=== PATIENT | female | born 1950 | race Caucasian/White ===

== ENCOUNTER 2016-06-02 13:24 | Inpatient (IN) | payer MEDICARE ==
[~2016-06-02] VITALS: Ht 165.1 cm; Wt 76.9 kg
[2016-06-02] VITALS (9 sets, daily range): BP systolic 117–182; BP diastolic 69–98; PULSE 16–80; RESP 14–16; O2SAT 96–100
[~2016-06-02 13:24] MED LIST: ALBU8.5H4 INHALATION; ATOR20TA65 PO; CHOL200025 PO; CLOB15CR3 TOP; CYCL1DRO OP; FEXO-15 PO; OMPR20CCR PO; SERT100T9 PO; TOPI-31 PO; UBID100C16 PO; VIT1TABL83 PO; vitamin b12 SQ
--- NOTE | 2016-06-02 14:21 | DRSVH ---
PROCEDURE: X-RAY CHEST, TWO VIEWS ([id number]) INDICATIONS: chest pain TECHNIQUE: 2 views of the chest were acquired. COMPARISON: [facility], CR, XR CHEST 2VW, 12/18/2015, 8:57. FINDINGS: Surgical changes and devices: Vascular clips are present in the right upper lateral chest area. The a ppearance would suggest mastectomy on the right. Lungs and pleura: No pleural effusions or pneumothorax. Lungs are clear. Mediastinum: Mediastinal contours are normal. Heart size is normal. Bones and chest wall: No suspicious bony abnormalities. Soft tissues appear unremarkable. IMPRESSION: No acute or active or metastatic disease is seen in the two-view chest. Dictated by: Grady Reyes M.D. on 06/02/2016 at 14:20 Approved by: Grady Reyes M.D. on 06/02/2016 at 14:20
[2016-06-02 16:09] LABS: BASOPHILS % (AUTO) 0.3 % (0-3); EOSINOPHILS % (AUTO) 1.8 % (0-5); MONOCYTES % (AUTO) 5.7 % (4-12); Mean Corpuscular Hemoglobin 29.4 pg (27.0-35.0); Mean Corpuscular Volume 89.7 fL (81-100); NEUTROPHILS % (AUTO) 69.3 % (40-74); Platelet Count 204 bil/L (150-400)
[2016-06-02 16:28] LABS: TROPONIN T 0.034 ug/L (0.0-0.011)
[2016-06-02 16:39] LABS: Magnesium 2.3 mg/dL (1.6-2.6)
--- NOTE | 2016-06-02 17:21 | ED.REPORT ---
HPI-Chest Pain 40 and Over Date of Service Jun 02, 2016 ED Provider: Jose Enrique Velazco MD A 66 year old female with a history of N3 M0 stage III left-sided breast cancer , asthma, LBBB, and hyperlipidemia presents to the ED complaining of mid- sternal chest pressure that began approx. 2 days ago. Her pain has been constant since onset and she rates her current pain as a 4/10. Patient initially believed her symptoms were due to asthma exacerbation but her albuterol inhaler provided no relief. Her symptoms are exacerbated by activity/ movement and relieved by rest. She denies diaphoresis, nausea, vomiting, hematemesis, melena, fevers or chills. Patient's last stress test and echocardiogram was in 2014. Cardiac history is notable for hyperlipidemia and family history of cardiac disease including her mother who during triple bypass at 56 and her brother who recently had a bypass and stent placed in his 50's. She denies history of smoking, DM or hypertension. She is currently taking Statin. Patient denies taking any aspirin today. Nursing Notes Stated Complaint: CHEST PAIN Chief Complaint: Chest Pain Nursing Notes Reviewed: Yes Allergies: Coded Allergies: dicyclomine (Verified Allergy, Severe, FLUSHING, 02/21/12) egg (Verified Allergy, Severe, THROAT SWELLING, 02/21/12) erythromycin base (Verified Allergy, Severe, Throat swelling; itching hands, feet, 02/21/12) HAS TAKEN Z-PACK W/O PROBLEMS ibuprofen (Verified Allergy, Severe, Throat swelling; itching hands & feet , 02/21/12) naproxen (Verified Allergy, Severe, THROAT SWELLS, 02/21/12) HAS TAKEN W/O SUFFERING REACTION Uncoded Allergies: Penicillin (Allergy, Severe, ANAPHYLAXIS, 02/21/12) TREE NUTS/SEEDS (Allergy, Severe, THROAT SWELLING, 02/21/12) ANTIMUSCARINICS/ANTISPASMODICS (Class Allergy) (Allergy, Unknown, UNKNOWN, 02/21/12) IV CONTRAST (Allergy, Unknown, flush, hives, 06/02/16) Scheduled ([vitamin b12]) SQ monthly Atorvastatin Calcium (Atorvastatin Calcium) 20 Mg Tablet 20 MG PO DAILY Cholecalciferol (Vitamin D3) (Vitamin D3) 2,000 Unit Tablet 2,000 UNIT PO DAILY Clobetasol Propionate/Emoll (Clobetasol Emollient 0.05% Crm) 15 Gm Cream..g. 1 APPL TOP PRN Cyclosporine (Restasis) 1 Each Droperette 1 EACH OP BID Fexofenadine (Margarita Allergy) 60 Mg Tablet 60 MG PO PRN Omeprazole (Prilosec) 20 Mg Capcr 20 MG PO PRN Sertraline HCl (Sertraline) 100 Mg Tablet 100 MG PO DAILY Topiramate (Topiramate) 100 Mg Tablet 100 MG PO DAILY Ubidecarenone (Coq-10) 100 Mg Capsule 300 MG PO DAILY Vit B Comp/C/FA/Iron/Vit E (Vitamin B Complex Tablet) 1 Each Tablet 1 EACH PO DAILY Scheduled PRN Albuterol HFA (Albuterol HFA) 8.5 Gm Hfa.aer.ad 2 PUFF INHALATION Q4H PRN PRN For Shortness of Breath Miscellaneous Medications Cyclosporine (Restasis) 1 Each Droperette 1 EACH OP Cyclosporine (Restasis Multidose) 0.05 % Drops 5.5 ML OP General Time Seen by MD: 17:19 Chief Complaint Chest pain Hx Obtained From: Patient Arrived By: Walk-in Sudden in Onset?: No Onset Occurred: 2 days ago Symptom Duration: Constant Location: : Chest left: Chest right Quality: Pressure Radiation: : Does not radiate Migration/Movement: Reports: None Severity: Current: Pain level 4 out of 10 Severity: Maximum: Pain level 4 out of 10 Associated with: Denies: Diaphoresis, Nausea, Vomiting Pertinent Negative: Pt denies other symptoms Recent Healthcare: No recent hospitalization, Recent doctor visit Risk Factors )( CAD Risk Stratification Family history HyperlipidemiaNo Hypertension Risk factors reviewed )( TAD Risk Stratification No Hypertension Risk factors reviewed )( PE Risk Stratification Risk factors reviewed Past Medical History Past Medical History Notes: PCP: Dr. Jesse Herring Past Medical History Stage III, pT1c N3 M0, left-sided breast cancer Asthma LBBB Hyperlipidemia Floppy bowel Left-sided tibial tendinopathy Past Surgical History None reported. Family History Mother - during triple bypass at 56 Brother - bypass and stent placed in his 50's Smoking History Never Smoker Social History Other Social History: Good social support, Local resident Ambulatory Status Independent Review of Systems Constitutional: Denies: Chills, Fever Cardiovascular: Reports: Chest pain (pressure ) GI: Denies: Hematemesis, Melena, Nausea, Vomiting Skin: Denies Diaphoresis Neurologic: Denies: Change LOC Complete sys rev & neg: except as marked. Physical Exam Initial Vital Signs Vital Signs (First) Date Time Temp Pulse Resp B/P Pulse Ox O2 Delivery O2 Flow Rate FiO2 06/02/16 13:26 36.4 16 16 166/98 100 Room Air 06/02/16 18:16 2 Initial VS: Reviewed Head / Eyes: Atraumatic, Normocephalic, PERRL Extremities: Vascular intact, Neuro intact, No swelling, No tenderness Skin: Warm, Dry, No cyanosis Neurologic: Alert, Oriented, Nonfocal Psychiatric: Mood/affect normal, Behavior normal, Normal thought content General/Constitutional: Awake, Alert, No acute distress Respiratory / Chest: Atraumatic, Breath sounds NL, Breath sounds = bilat, No respiratory distress Cardiovascular: Heart rate NL, Regular rhythm, Heart sounds NL, No gallop, No murmurs, No rubs Abdomen: Atraumatic, Soft, Non-tender, BS normoactive Interpretation & Diagnostics Lab Results Interpretation Result Diagram: 06/02/16 1538 06/02/16 1538 Test 06/02/16 15:38 06/02/16 18:36 White Blood Count 7.9th/mm3 (3.8-10.1) Red Blood Count 4.97mil/mm3 (3.90-5.20) Hemoglobin 14.6g/dL (12.0-15.6) Hematocrit 44.6% (35.0-46.0) Mean Corpuscular Volume 89.7fL (81-100) Mean Corpuscular Hemoglobin 29.4pg (27.0-35.0) Mean Corpuscular Hemoglobin Concent 32.7% (32.0-37.0) Red Cell Distribution Width 15.1% (12.3-15.4) Platelet Count 204bil/L (150-400) Neutrophils (%) (Auto) 69.3% (40-74) Lymphocytes (%) (Auto) 22.8% (14-46) Monocytes (%) (Auto) 5.7% (4-12) Eosinophils (%) (Auto) 1.8% (0-5) Basophils (%) (Auto) 0.3% (0-3) Activated Partial Thromboplast Time 28.9sec (22.8-33.0) Sodium Level 144mEq/L (134-144) Potassium Level 4.4mEq/L (3.5-5.2) Chloride Level 105mEq/L (97-108) Carbon Dioxide Level 24mmol/L (18-29) Blood Urea Nitrogen 14mg/dL (8-27) Creatinine 0.97mg/dL (0.57-1.00) Estimat Glomerular Filtration Rate 82mL/min (>59) Glucose Level 96mg/dL (60-99) Calcium Level 11.5mg/dL (8.5-10.1) Magnesium Level 2.3mg/dL (1.6-2.6) Total Bilirubin 0.4mg/dL (0.0-1.2) Aspartate Amino Transf (AST/SGOT) 14U/L (0-50) Alanine Aminotransferase (ALT/SGPT) 12U/L (0-32) Alkaline Phosphatase 82U/L (25-165) Troponin T 0.034ug/L (0.0-0.011) Total Protein 7.5g/dL (6.4-8.4) Albumin 4.7g/dL (3.4-5.0) Hold Hutson Top Tube Received (Received) Hold Urine Received (Received) ECG Interpretation ECG Interpretation: Normal Sinus Rhythm LBBB Rate Time: 13:39 Interpreted by: ED physician X-Ray Chest Interpretation Chest Xray Interpretation: IMPRESSION: No acute or active or metastatic disease is seen in the two-view chest. Dictated by: Grady Reyes M.D. on 06/02/2016 at 14:20 Interpretation / Wet Read by: Interpret - Radiologist Re-Eval/Medical Decision Med Decision/Clinical Course 66-year-old female with multiple risk factors most notably family history. She presents with chest pain since last night. She has a pre-existing left bundle-branch block and a positive troponin. Her physical examination is unremarkable. Given aspirin, nitrates, heparin Plavix and metoprolol. We have spoken to the cardiology service and she will be admitted to the hospitalist service. Time of Eval: 17:47 Patient Status: Condition improved Re-Evaluation/Progress Note: Galina is informed of her elevated troponin the plan to use Plavix and Heparin. She reports that she has been able to take neproxin and apsirin in the past. Patient reports that her throat swells. Consultation #1: Referral / Consult Name: Dodie Duenas MD Consulted With: Cardiology Call Returned at: 17:45 Aerospace Project Manager: Will see patient, Agrees with eval, Agrees with plan Note: Agrees to consult Consultation #2: Referral / Consult Name: AsteremanuelmahamedKinzastacie Jacome DO Consulted With: Hospitalist Call Returned at: 19:45 Aerospace Project Manager: Will see patient, Agrees with eval, Agrees with plan, Accepts admit Counseled Regarding: Diagnosis, Lab results, Need for admission Discharge & Departure Primary Impression: Non-ST elevation (NSTEMI) myocardial infarction Disposition: ADMITTED TO HOSPITAL Discharge Condition All VS Reviewed: Yes Condition: Improved Referrals: Nima Molina MD (PCP) Anetteibjosh Attestation Portions of this note were transcribed by Erendira Escobar. I, Dr. Velazco personally performed the history, physical exam and medical decision-making; I reviewed and confirmed the accuracy of the information in the transcribed note. Signed by: Vinay Moran, 06/02/162025. copies to: Nima Molina MD, Donald L MD Jun 02, 2016 17:21 ERENDIRA ESCOBAR Jun 02, 2016 17:31
[2016-06-02] MEDS ORDERED: Heparin 25K Unit/500mL 0.45 NS 25,000 UNIT in IV Premix 1 EACH IV ONE (17:40)
[2016-06-02] MEDS ORDERED: MeTOProlol 1 mg/mL 5 mL Inj IVPUSH SCH (17:40)
[2016-06-02] MEDS ORDERED: Heparin 5,000 Unit/mL Inj IVPUSH ONE (17:40)
[2016-06-02] MEDS ORDERED: CYCL5.5D OP (18:31)
[2016-06-02] MEDS ORDERED: CYCL1DRO OP (18:31)
[2016-06-02] MEDS ORDERED: Polyethylene Glycol (PEG) 17 Gm Powder PO PRN (20:15)
[2016-06-02] MEDS ORDERED: Ondansetron 2 mg/mL 2 mL Inj IVPUSH PRN (20:15)
[2016-06-02] MEDS ORDERED: Senna-Docusate 8.6-50 mg Tablet PO PRN (20:15)
[2016-06-02] MEDS ORDERED: Alum-Mag Hydrox-Simeth 30 mL Suspension PO PRN (20:15)
[2016-06-02] MEDS ORDERED: Heparin 5,000 Unit/mL Inj IVPUSH PRN (20:15)
[2016-06-02] MEDS ORDERED: Atropine 1 mg/10 mL (Code) Syringe IVPUSH PRN (20:15)
[2016-06-02] MEDS ORDERED: Heparin 25K Unit/500mL 0.45 NS 25,000 UNIT in IV Premix 1 EACH IV SCH (20:15)
[2016-06-02] MEDS ORDERED: Albuterol HFA 60 Puff 8 Gm Inhaler INHALATION PRN (20:25)
[2016-06-02] MEDS ORDERED: Albuterol 2.5 mg/3 mL Inhalation Solution NEB PRN (20:40)
--- NOTE | 2016-06-02 20:41 | PCM.HPMED ---
Subjective Date of Service Jun 02, 2016 Primary Provider: Admitting Physician: Kinza Santana DO Primary Care Physician: Nima Molina MD Attending Physician: Kinza Santana DO Admit Status: From the Emergency Department Chief Complaint: Chest Pain History of Present Illness: Laney Estrada is a 66 year old woman with a PMH of Ns M0 Stage III breast cancer, Asthma, LBBB, and hyperlipidemia who presents with a 2 day history of dull sub- sternal chest pain and pressure. She states that the pain was constant 4/10 since onset until administration of SL Nitro which greatly improved her symptoms. She states that her symptoms are aggravated by exertion and relieved by rest. She had initially thought this was an asthma exacerbation but when it did not respond to her Albuterol inhaler she thought it prudent to seek further medical attention. Patient last had stress test and ECHO in 2014 which demonstrated an EF of 60-65% without valvular pathology; the stress test was benign. Breast cancer is followed by Dr. Celsa tao seen in 2015 at which time there was no active disease. Family history is significant for mother who during a triple bypass at age 56 and a brother who recently had a stent placed in his 50s. She denies diaphoresis, nausea, vomiting, hematemesis, melena, fevers or chills. In the ED the patient had + Trop at 0.[address] changes. CXR revealed no acute or metastatic disease. Dr. Duenas from cardiology is aware of the patient, and has agreed to consult Comprehensive ROS negative except as outlined above. Review of Systems: Complete review of system obtained. Positive as per HPI otherwise negative. Allergies Coded Allergies: dicyclomine (Verified Allergy, Severe, FLUSHING, 02/21/12) egg (Verified Allergy, Severe, THROAT SWELLING, 02/21/12) erythromycin base (Verified Allergy, Severe, Throat swelling; itching hands, feet, 02/21/12) HAS TAKEN Z-PACK W/O PROBLEMS ibuprofen (Verified Allergy, Severe, Throat swelling; itching hands & feet , 02/21/12) naproxen (Verified Allergy, Severe, THROAT SWELLS, 02/21/12) HAS TAKEN W/O SUFFERING REACTION Uncoded Allergies: Penicillin (Allergy, Severe, ANAPHYLAXIS, 02/21/12) TREE NUTS/SEEDS (Allergy, Severe, THROAT SWELLING, 02/21/12) ANTIMUSCARINICS/ANTISPASMODICS (Class Allergy) (Allergy, Unknown, UNKNOWN, 02/21/12) IV CONTRAST (Allergy, Unknown, flush, hives, 06/02/16) PMH N3 M0 Stage III left sided breast cancer, asthma, LBBB, hyperlipidemia Surgical History None Family History Mother during triple bypass age 56 Brother with ID and stent in his 50s Social History Hx Alcohol Use: No Hx Substance Use: No Smoking Status: Never Smoker Living Arrangement: with Family Exam Vital Signs Vital Sign - Last Date Time Temp Pulse Resp B/P Pulse Ox O2 Delivery O2 Flow Rate FiO2 06/02/16 20:27 37.2 58 16 154/77 98 Room Air 1 Nasal Cannula Exam GEN: A/O x3 pleasant cooperative woman in NAD Neck: Supple, non tender, no JVD Lymph: No lymphadenopathy, no cervical or supraclavicular tenderness HEENT: PERRL, EOMI, no scleral icterus, no conjunctival pallor CV: RRR, no murmurs rubs or gallops Resp: Lungs CTA BL no wheezing rales or rhonchi Abdomen: Soft, non tender, no organomegaly Extr: No cyanosis clubbing or edema MusculoSkeletal: normal muscle tone, skin without erythema or trauma Neuro: CN 2-12 grossly intact, no focal neurologic deficit. Lab and Diagnostics Labs Item Value Date Time Red Blood Count 4.97 mil/mm3 06/02/16 1538 Mean Corpuscular Volume 89.7 fL 06/02/16 1538 Neutrophils (%) (Auto) 69.3 % 06/02/16 1538 Lymphocytes (%) (Auto) 22.8 % 06/02/16 1538 Calcium Level 11.5 mg/dL H 06/02/16 1538 Magnesium Level 2.3 mg/dL 06/02/16 1538 Total Bilirubin 0.4 mg/dL 06/02/16 1538 Aspartate Amino Transf (AST/SGOT) 14 U/L 06/02/16 1538 Alanine Aminotransferase (ALT/SGPT) 12 U/L 06/02/16 1538 Alkaline Phosphatase 82 U/L 06/02/16 1538 Total Protein 7.5 g/dL 06/02/16 1538 Albumin 4.7 g/dL 06/02/16 1538 Activated Partial Thromboplast Time 28.9 sec 06/02/16 1538 Result Diagram: 06/02/16 1538 06/02/16 1538 X-Rays, CTs and MRIs X-RAY CHEST, TWO VIEWS IMPRESSION: No acute or active or metastatic disease is seen in the two-view chest. Dictated by: Grday Reyes M.D. on 06/02/2016 at 14:20 Approved by: Grady Reyes M.D. on 06/02/2016 at 14:20 12-lead ECG Sinus Rhythm LBBB Assessment & Plan Laney Estrada is a 66 year old female with a 2 day history of substernal chest pain, a strong family history of CAD, and positive Troponin without ECG changes. She will be admitted for NSTEMI management; cardiology is aware and will be consulting on the patient 1. NSTEMI, present on admission, acute. -Tele -Cardiac Heparin Drip -Metoprolol Tartrate 25 mg given in ED, second dose held due to Bradycardia, consider restarting in AM if heart rate increases -Increase home Atorvastatin to 40 mg daily -Nitrate SL PRN, Morphine IV as needed for chest pain -Supplemental O2 as needed -ASA 325 once then 81 mg, Plavix 300 mg once then 75 mg -Trend Trop and CK CKMB -Lipid Panel and A1 pending -ECHO ordered for am -Cardiology is aware of the patient and will be consulting, we appreciated their input 2. Asthma, present on admission, chronic, stable -not with acute exacerbation -Continue Home Albuterol as needed -Supplemental O2 as needed -Monitor for respiratory depression while on Metoprolol 3. Stage III breast cancer in remission, present on admission, chronic, stable -No evidence of recurrent metastatic disease on CXR -Continue to observe 4. Depression with anxiety, present on admission, chronic. Stable -Continue home Sertraline Other chronic conditions managed with home meds Dry Eyes: Patient's own cyclosporine eye drops Chronic Headaches: Continue home topiramate Home Vitamins: Continue Vit B, B12, CoQ10, D3 CODE STATUS: FULL code Disposition: Inpatient with anticipated stay greater than 2 midnights due to severity of condition and complexity of treatment plan; cardiology consult in the AM may downgrade the patient to observation. Pain Evaluation: Adequate Pain Control GI Prophylaxis: H2 vini VTE Prophylaxis: Other (IV Heparin) Resuscitation Status: CPR: Attempt Resuscitation Attending Statement The patient was seen and examined together with house staff on 06/02/2016 and I agree with the history, exam and plan as outlined in the note above. Hudson Cervantes DO Jun 02, 2016 20:41 Kinza Santana DO Jun 02, 2016 23:37
--- NOTE | 2016-06-02 20:50 | NUR ---
Admit Pt arrived on unit at 2039 on [facility]. Pt jamar to ambulate to scale and bed with SBA. steady gait observed. Pt denies pain is A&Ox3 and VSS. IV infusing heparin per protocol. Tele applied. Pt DPOA and declination of blood paperwork copied and placed in chart at this time.
[2016-06-02] MEDS: 0.9% Sodium Chloride 1,000 ML IV SCH (21:06)
[2016-06-02] MEDS: Sodium Chloride LOK Flush 10 mL Syringe IVFLUSH SCH (21:06)
[2016-06-02] MEDS: RESTASIS BOTH_EYES SCH (21:23)
[2016-06-02 22:32] LABS: Creatine Kinase 83 U/L (21-215)
[2016-06-02 22:33] LABS: APPEARANCE,URINE CLEAR (CLEAR,HAZY); COLOR,URINE STRAW (YELLOW)
[2016-06-02 22:34] LABS: OCCULT BLOOD,URINE SMALL (NEGATIVE); PH,URINE 6.5 (5.0-8.0); UROBILINOGEN,URINE NORMAL (NORMAL)
[2016-06-02 22:41] LABS: TROPONIN T 0.046 ug/L (0.0-0.011)
[2016-06-03] VITALS (8 sets, daily range): BP systolic 124–140; BP diastolic 71–75; PULSE 50–70; RESP 16–18; O2SAT 96–97
[2016-06-03 02:36] LABS: EOSINOPHILS % (AUTO) 2.6 % (0-5); MONOCYTES % (AUTO) 6.9 % (4-12); Mean Corpuscular Hemoglobin 29.4 pg (27.0-35.0); Mean Corpuscular Volume 89.6 fL (81-100); NEUTROPHILS % (AUTO) 65.5 % (40-74); Platelet Count 193 bil/L (150-400)
[2016-06-03 02:37] LABS: BASOPHILS % (AUTO) 0.7 % (0-3)
[2016-06-03 03:17] LABS: Magnesium 2.2 mg/dL (1.6-2.6); Phosphorus 4.2 mg/dL (2.5-4.9)
[2016-06-03 04:08] LABS: Creatine Kinase 75 U/L (21-215)
[2016-06-03 04:09] LABS: TROPONIN T 0.039 ug/L (0.0-0.011)
[2016-06-03] MEDS ORDERED: Vitamin B Complex/Vit C Tablet PO SCH (08:30)
[2016-06-03] MEDS: Sodium Chloride LOK Flush 10 mL Syringe IVFLUSH SCH ×3 (08:30→23:02)
--- NOTE | 2016-06-03 10:06 | PCM.CHPCAR ---
Consult Subjective Date of service Jun 03, 2016 Date of admit Jun 02, 2016 at 20:06 Provider Requesting Consult Primary Care Physician Primary Care Physician: Nima Molina MD Chief Complaint Chest pain, NSTEMI History of Present Illness 66 yo Restorationism woman h/o stage III breast cancer with no recurrence as of 2016, chronic LBBB, and HLD admitted with chest pain. At baseline, patient is fairly healthy and can climb 2 flights of stairs without any difficulty and symptoms. 3 days ago, patient started having exertional chest pain radiating to her jaw that persisted even at rest. She took her inhaler and it did not help. Rest improves the pain. The chest pain persisted until she came to our emergency room yesterday and got nitroglycerin that resolved the pain. She had no recurrence of chest pain in the emergency room that also resolved with nitroglycerin. No recurrence of chest pain since arrival to the hospital floor. Associated with the chest pain is shortness of breath. Denies palpitations, heart racing sensations, nausea, vomiting, lightheadedness, or syncope. Review of Systems Review of Systems Per history of present illness and otherwise unremarkable PMH Past Medical History # Stage 3 breast cancer, N3 M0. Diagnosed 2008. On annual surveillance with last echo in 2016 being benign and no recurrence. # Chronic LBBB # HLD Bedside Blood Glucose: 102 Scheduled ([vitamin b12]) SQ monthly (Reported) Atorvastatin Calcium (Atorvastatin Calcium) 20 Mg Tablet 20 MG PO DAILY ( Reported) Cholecalciferol (Vitamin D3) (Vitamin D3) 2,000 Unit Tablet 2,000 UNIT PO DAILY (Reported) Clobetasol Propionate/Emoll (Clobetasol Emollient 0.05% Crm) 15 Gm Cream..g. 1 APPL TOP PRN (Reported) Cyclosporine (Restasis) 1 Each Droperette 1 EACH OP BID (Reported) Fexofenadine (Margarita Allergy) 60 Mg Tablet 60 MG PO PRN (Reported) Omeprazole (Prilosec) 20 Mg Capcr 20 MG PO PRN (Reported) Sertraline HCl (Sertraline) 100 Mg Tablet 100 MG PO DAILY (Reported) Topiramate (Topiramate) 100 Mg Tablet 100 MG PO DAILY (Reported) Ubidecarenone (Coq-10) 100 Mg Capsule 300 MG PO DAILY (Reported) Vit B Comp/C/FA/Iron/Vit E (Vitamin B Complex Tablet) 1 Each Tablet 1 EACH PO DAILY (Reported) Scheduled PRN Albuterol HFA (Albuterol HFA) 8.5 Gm Hfa.aer.ad 2 PUFF INHALATION Q4H PRN PRN For Shortness of Breath (Reported) Miscellaneous Medications Cyclosporine (Restasis) 1 Each Droperette 1 EACH OP (Reported) Cyclosporine (Restasis Multidose) 0.05 % Drops 5.5 ML OP (Reported) Current Inpatient Medications Current Medications Metoprolol Tartrate 5 mg Q5MIN IVPUSH; Start 06/02/16 at 17:40; Stop 06/02/16 at 21:04; Status DC Nitroglycerin 0.4 mg Q5MIN PRN SL Last administered on 06/02/16 20:29; Admin Dose 0.4 MG; Start 06/02/16 at 17:40 Sodium Chloride 10 ml 10 ml PUSHPA IVFLUSH; Start 06/03/16 at 00:30 Sodium Chloride 1,000 ml @ 80 mls/hr [id number] IV Last administered on 06/02/16 21:06; Admin Dose 80 MLS/HR; Start 06/02/16 at 20:15 Aspirin 81 mg DAILY PO; Start 06/03/16 at 08:30 Clopidogrel Bisulfate 75 mg DAILY PO; Start 06/03/16 at 08:30 Metoprolol Tartrate 25 mg Q12 PO; Start 06/02/16 at 20:30; Stop 06/02/16 at 21:04 ; Status DC Al Hydrox/Mg Hydrox/Simethicone 30 ml Q6 PRN PO; Start 06/02/16 at 20:15 Ondansetron HCl 4-8 mg prn nausea Q4 PRN IVPUSH; Start 06/02/16 at 20:15 Senna 1 tablet BID PRN PO; Start 06/02/16 at 20:15 Polyethylene Glycol 17 gm DAILY PRN PO; Start 06/02/16 at 20:15 Acetaminophen 325 mg Q6 PRN PO; Start 06/02/16 at 20:15 Morphine Sulfate 1-5 mg prn pain not relie... Q5M PRN IVPUSH; Start 06/02/16 at 20:15 Atropine Sulfate Give 0.5 mg for Robert... Q5MIN PRN IVPUSH; Start 06/02/16 at 20: 15 Heparin Sodium (Porcine) Per Protocol for a... PRN PRN IVPUSH; Start 06/02/16 at 20:15 Albuterol 2 puff Q4H PRN INHALATION; Start 06/02/16 at 20:25; Stop 06/02/16 at 20 :37; Status DC Atorvastatin Calcium 40 mg DAILY PO; Start 06/02/16 at 20:25 Topiramate 100 mg DAILY PO; Start 06/03/16 at 08:30 Cholecalciferol 2,000 unit DAILY PO; Start 06/03/16 at 08:30 Patient Own Medication 1 drop BID BOTH_EYES Last administered on 06/02/16t 21:23 ; Admin Dose 1 DROP; Start 06/02/16 at 20:30 Pantoprazole 20 mg DAILY PO; Start 06/02/16 at 20:25 Sertraline HCl 100 mg DAILY PO; Start 06/03/16 at 08:30 Non-Formulary Medication 300 mg DAILY PO; Start 06/03/16 at 08:30; Stop 06/03/16 at 08:30; Status DC Vitamin B Complex/ Vitamin C 1 tablet DAILY PO; Start 06/03/16 at 08:30; Stop 06/03/16 at 09:22; Status DC Albuterol 2.5 mg Q4HWA PRN NEB; Start 06/02/16 at 20:40; Stop 06/02/16 at 21:04; Status DC Prenat Multivit/ Stokes/Iron/Folic Ac 1 tablet DAILY PO; Start 06/04/16 at 08:30 Allergies: Coded Allergies: dicyclomine (Verified Allergy, Severe, FLUSHING, 02/21/12) egg (Verified Allergy, Severe, THROAT SWELLING, 02/21/12) erythromycin base (Verified Allergy, Severe, Throat swelling; itching hands, feet, 02/21/12) HAS TAKEN Z-PACK W/O PROBLEMS ibuprofen (Verified Allergy, Severe, Throat swelling; itching hands & feet , 02/21/12) naproxen (Verified Allergy, Severe, THROAT SWELLS, 02/21/12) HAS TAKEN W/O SUFFERING REACTION Uncoded Allergies: Penicillin (Allergy, Severe, ANAPHYLAXIS, 02/21/12) TREE NUTS/SEEDS (Allergy, Severe, THROAT SWELLING, 02/21/12) ANTIMUSCARINICS/ANTISPASMODICS (Class Allergy) (Allergy, Unknown, UNKNOWN, 02/21/12) IV CONTRAST (Allergy, Unknown, flush, hives, 06/02/16) Family History Family History Mom of CAD at age 56 Social History Hx Alcohol Use: NoHx Substance Use: No Smoking Status: Never Smoker Living Arrangement: with Family Exam Vital Signs Vital Sign - Last Date Time Temp Pulse Resp B/P Pulse Ox O2 Delivery O2 Flow Rate FiO2 06/03/16 09:03 61 06/03/16 07:47 36.4 16 140/75 96 Nasal Cannula 2.00 Intake and Output 06/02/16 06/02/16 06/03/16 Cumulative From/Thru 15:00 23:00 07:00 06/02/16 13:26 - 06/03/16 05:16 Intake Total 1098 ml 1098 ml Output Total 650 ml 600 ml 1250 ml Balance -650 ml 498 ml -152 ml Intake Oral 200 ml 200 ml IV Total 898 ml 898 ml Output Urine Total 650 ml 600 ml 1250 ml # Bowel Movements 0 0 General appearance: No apparent distress, well-nourished, pleasant, cooperative HEET: Normocephalic atraumatic, no scleral icterus, tongue midline, mucous membranes moist Neck: supple, no bruit Cardiovascular: RRR, normal S1 and paradoxical split S2, no murmurs/ rubs/ gallops, PMI nondisplaced, no JVD, no peripheral edema Respiratory: Good aeration, CTAB Abdomen: Soft, nontender, nondistended, + bowel sounds Neuro: Alert, no facial droop, tongue midline, no gross motor deficits Psych: appropriate affect Skin: no rashes on face, neck, and lower extremities Lab and Diagnostics Labs Troponin 0.046 that down trended to 0.039. CK and CK-MB normal. LDL 70. Result Diagram: 06/03/1621906/03/16219 12-lead ECG ECG on admission shows sinus rhythm with left bundle branch block Telemetry in the past 24 hours shows sinus rhythm with occasional PVCs Assessment & Plan Assessment 66 yo Restorationism woman h/o stage III breast cancer with no recurrence as of 2015, chronic LBBB, and HLD admitted with NSTEMI: # NSTEMI: Patient self described story of chest pain suggestive of acute coronary syndrome. ECG shows a chronic unchanged left bundle-branch block. Troponins are elevated, consistent with NSTEMI. I spent significant time regimen the patient and her about patient's condition and answered their questions. I recommended proceeding with coronary angiography with possible PCI. After discussing risks and benefits and alternatives involving medical management alone, patient wishes to proceed with coronary angiography with PCI. She is reminded me that she is Bahai and is not interested in blood transfusions. Recommendations as below: - Continue aspirin 81mg daily - s/p clopidogrel 300mg PO load and now on 75mg daily - Continue atorvastatin 40mg qhs - Continue heparin gtt - Start metoprolol XL 12.5mg qday. Metoprolol tartrate 25mg bid caused bradycardia into the high 40s. - Echo pending - Coronary angiography with possible PCI tomorrow with Dr. Bolden. Informed consent obtained after discussing risks and benefits and alternatives. # LBBB: chronic and unchanged. Echo pending. # HLD: statin as above # Breast cancer, stage 3: no recurrence. On annual surveillance. Prior history of breast cancer is not a contraindication to cath or treatment of NSTEMI in this patient. # Social: - Patient is Bahai and is not interested in blood transfusions. Will respect her wishes and I have asked phlebotomy and the RN to do lab draws using pediatric tubes Pain Evaluation: Adequate Pain Control VTE Prophylaxis: Other (IV Heparin) Resuscitation Status: CPR: Attempt Resuscitation Dodie Duenas MD Jun 03, 2016 10:06
[2016-06-03] MEDS: Pantoprazole 20 mg ER24 Tablet PO SCH ×2 (10:10)
[2016-06-03] MEDS: 0.9% Sodium Chloride 1,000 ML IV SCH (10:11)
[2016-06-03] MEDS: RESTASIS BOTH_EYES SCH ×2 (11:14→20:45)
--- NOTE | 2016-06-03 12:30 | NUR ---
[facility] signed
[2016-06-03] MEDS: MeTOProlol XL 25 mg ER24 Tablet PO SCH (13:33)
--- NOTE | 2016-06-03 15:27 | PCM.PNMED ---
Subjective Date of Service Jun 03, 2016 Subjective Patient resting comfortably in bed, multiple family members at bedside. Denies any current chest pain or shortness of breath, no nausea vomiting or diaphoresis. Exam Vital Signs Vital Sign - Last Date Time Temp Pulse Resp B/P Pulse Ox O2 Delivery O2 Flow Rate FiO2 06/03/16 12:50 36.7 60 18 133/72 97 Nasal Cannula 2.00 Intake and Output 06/02/16 06/02/16 06/03/16 Cumulative From/Thru 15:00 23:00 07:00 06/02/16 13:26 - 06/03/16 05:16 Intake Total 1098 ml 1098 ml Output Total 650 ml 600 ml 1250 ml Balance -650 ml 498 ml -152 ml Intake Oral 200 ml 200 ml IV Total 898 ml 898 ml Output Urine Total 650 ml 600 ml 1250 ml # Bowel Movements 0 0 Exam General: Alert, Oriented X3, NAD Head: Normocephalic, atraumatic Eyes: DAX, EOMI, no scleral Icterus Chest: clear to auscultation B/L, no wheezing rales or rhonchi Heart: Regular rate and rhythm. Normal S1, S2, no murmurs noted Abdomen: soft, non-tender. Bowel sounds are normoactive. No guarding or rebound. Extremities: no cyanosis, clubbing or edema. IVs and Medications Medications Reviewed: Medications were reviewed in detail Lab and Diagnostics Result Diagram: 06/03/1621906/03/16 022 X-Rays, CTs and MRIs X-RAY CHEST, TWO VIEWS IMPRESSION: No acute or active or metastatic disease is seen in the two-view chest. Dictated by: Grady Reyes M.D. on 06/02/2016 at 14:20 Approved by: Grady Reyes M.D. on 06/02/2016 at 14:20 12-lead ECG Sinus Rhythm LBBB Assessment & Plan Laney Estrada is a 66 year old female with a 2 day history of substernal chest pain, a strong family history of CAD, and positive Troponin without ECG changes. She will be admitted for NSTEMI management; cardiology was consulted #. NSTEMI, present on admission, acute. -Plans for cardiac cath 06/04/2016 -Heparin Drip -Continue nitroglycerin, morphine as needed, aspirin, Plavix, statin. Oxygen as needed -Trending troponin -Awaiting echocardiogram results. #. Asthma, present on admission, chronic, stable -Stable, not contributing -Continue Home Albuterol as needed #. Stage III breast cancer in remission, present on admission, chronic, stable -No evidence of recurrent metastatic disease on CXR. Cleared for 5 years per patient #. Depression with anxiety, present on admission, chronic. Stable -Continue home Sertraline CODE STATUS: FULL code DVT prophylaxis: Currently on heparin drip Disposition: Pending hospital course, likely home at discharge. Independent with ADLs GI Prophylaxis: H2 vini VTE Prophylaxis: Other (IV Heparin) Resuscitation Status: CPR: Attempt Resuscitation Tenzin Gardner DO Jun 03, 2016 15:27
--- NOTE | 2016-06-03 15:38 | NUR ---
Social Work Note: Initial Assessment Data& Assessment: EMR reviewed. SW met with pt and pt family at bedside to discuss discharge planning, SW role explained. Laney Estrada is a 66 year old female admitted on 06/02/2016 for NSTEMI. Pt has [employer] Medicare insurance coverage and sees Nima Molina MD for primary care. Pt lives in [place] with her spouse and is independent at baseline with all ADL's. Pt drives and does not use any DME. Pt does not have HH or SNF hx. Pt does not have LTC insurance or VA benefits. Pt has DPOA/Advance Directive paperwork completed and placed on her chart. Pt family to transport her home when medically ready. Pt is requiring oxygen at this time and does not normally wear home 02. Pt denies any needs at this time. SW to continue to follow for any respiratory or discharge planning needs. No other discharge needs identified at this time. Plan: Anticipated discharge home via POV when medially ready. Pt denies any needs at this time. SW to continue to follow for any respiratory or discharge planning needs. No other discharge needs identified at this time. ERNESTO Conklin Addendum: 06/03/16 at 1543 by ELLYN POLLARD Amended: Links added.
--- NOTE | 2016-06-03 19:08 | NUR ---
heparin gtt Cardiac: Pt denies CP, Tele: SR 50s-70s, Cardiac Heparin protocol in place. Plan is for angiogram in AM on 06/04 Resp: Pt denies SOB, SPO2 99% on 2L NC. GI/: Pt denies n/v/d, up to BSC to void. good urine output. Neuro: A&Ox3, nelson
[2016-06-04] VITALS (24 sets, daily range): BP systolic 93–148; BP diastolic 53–84; PULSE 53–72; RESP 14–17; O2SAT 94–97
[2016-06-04] MEDS: 0.9% Sodium Chloride 1,000 ML IV SCH ×3 (01:09→21:12)
--- NOTE | 2016-06-04 05:55 | NUR ---
CP/Hep. gtt Pt on heparin infusion, had one very minor nosebleed. PTT critically high at 158 at beginning of shift, MD informed, gtt turned off for 1 hr and PTT redraw was 74.2. Pt had one episode of CP at 05/04, Nitor SL given x1, effective, pt reported relief of symptoms.
--- NOTE | 2016-06-04 05:58 | DRSVH ---
[facility] [address] [place] [address] Echocardiogram Report Name: MARY CEE Colin e: 06/03/2016 Height: 65 in Hospital Exam Location: [facility] Weight: 169 lb Gender: Female BSA: 1.8 m2 : 1950 Age: 66 yrs BP: 129/72 mmHg Reason For Study: Acute Coronary Syndrome History: LBBB, hyperlipidemia Ordering Physician: Performed By: Salma Sauer Referring Physician: Nima Molina Interpretation Summary 1) Normal left ventricular thickness, size, and systolic function (EF 55- 60)%. 2) Poor endothelial visualization limit wall motion assess but inferolateral wall appears to have subtle hypokinesis. 3) Normal right ventricular size and function. 4) No significant valvular disease. 5) Compared to the Echo done 10/25/2014, subtle hypokinesis of the inferolateral appears to be present on today's study. Procedure: A two-dimensional transthoracic echocardiogram with color flow and Doppler was performed. The study quality was technically adequate. Comparison is made with the echocardiogram of 10/25/2014. The patient was in normal sinus rhythm during the exam. The heart rate ranged between 49-66 bpm during the study. The patient had a bundle branch block rhythm during the exam. Left Ventricle: Proximal septal thickening is noted. The left ventricle is normal in size. Left ventricular wall thickness is normal. The ejection fraction is estimated to be 55-60%. Septal motion is consistent with conduction abnormality. Poor endothelial visualization limit wall motion assess but inferolateral wall appears to have subtle hypokinesis. Assessment of diastolic parameters indicates a relaxation abnormality of the left ventricle, consistent with normal filling pressures. Right Ventricle: The right ventricle is normal in size and function. Atria: The left atrium is mildly dilated. Right atrial size is normal. There is no Doppler evidence for an interatrial shunt. Mitral Valve: The mitral valve leaflets appear thickened, but open well. There is mild mitral regurgitation. Aortic Valve: The aortic valve is trileaflet. The aortic valve opens well. There is no aortic valve stenosis. No aortic regurgitation is present. Tricuspid Valve: The tricuspid valve is not well visualized, but is grossly normal. There is trace tricuspid regurgitation. The right ventricular systolic pressure is estimated at 22 mmHg assuming a right atrial pressure of 3 mm Hg. Pulmonic Valve: The pulmonic valve is normal in structure and function. There is no pulmonic valvular regurgitation. Great Vessels: The aortic root is normal size. The ascending aorta is normal in size. The IVC is of normal diameter and collapses greater than 50% with a sniff. This suggests a low right atrial pressure of 3 mm Hg. Pericardium/ Pleura There is no pericardial effusion. MMode/2D Measurements & Calculations LVIDd: 4.9 cm LA dimension: 3.5 cm RA long axis LVOT diam LVIDs: 3.2 cm FS: 35.4 % LA A2 area: 17.0 cm RA area Ao root diam EPSS: 0.51 cm LA A4 area: 19.5 cm IVSd: 1.3 cm LA length (vol): 4.5 cm : 17.9 cm Aortic Jxn LVPWd: 1.2 cm LA vol: 62.8 ml RA vol: 53.6 ml LA vol index RA asc Aorta : 29.1 mm2 Diam: 3.2 cm IVC diam: 1.5 cm LV pinedo. diameter/BSA LV sys. diameter/BSA RVD1 (basal) RVD2 (mid) (cm/m^2): 2.6 (cm/m^2): 1.7 : 3.1 cm Doppler Measurements & Calculations Ao V2 max MV E max denys MV E/A: 0.61 TR max denys : 121.0 cm/sec : 51.9 cm/sec Med Peak E' Denys : 219.1 cm/sec Ao max PG MV A max denys TR max PG : 5.9 mmHg : 85.8 cm/sec E/E' med: 14.5 : 19.2 mmHg Ao mean PG MV P1/2t: 79.3 msec Lat Peak E' Denys PA V2 max : 72.9 cm/sec LVOT Max Denys E/E' lat: 8.2 PA mean PG : 81.5 cm/sec E/e' average: 11.4 Pulm A Revs Dur PA Accel Time PRITESH(I,D): 2.6 cm : 0.11 sec sev ratio MV A dur: 0.12 sec MV dec time MV P1/2t max denys Ao V2 mean LV V1 max PG : 0.27 sec : 81.3 cm/sec MVA(P1/2t): 2.8 cm2 Ao V2 VTI: 28.2 cm LV V1 VTI PRITESH(V,D): 2.4 cm2 : 20.6 cm PA V2 mean PRITESH indexed to BSA Pulm A Revs Dur - MV : 51.5 cm/sec (cm^2/m^2): 1.4 A Dur: 0.02 msec Reading Physician:12:44 PM
[2016-06-04] MEDS: Sodium Chloride LOK Flush 10 mL Syringe IVFLUSH SCH ×3 (08:30→21:12)
[2016-06-04] MEDS ORDERED: Heparin 1,000 Unit/mL 10 mL Inj ONE ×3 (08:43→11:31)
[2016-06-04] MEDS ORDERED: Heparin 5,000 Units/500 mL NS Premix IV ONE ×3 (08:51→11:19)
[2016-06-04] MEDS: RESTASIS BOTH_EYES SCH ×2 (09:01→21:11)
[2016-06-04] MEDS: MeTOProlol XL 25 mg ER24 Tablet PO SCH (09:03)
[2016-06-04] MEDS: Multivit-Miner-Folic Acid-Iron Tablet PO SCH (09:04)
[2016-06-04] MEDS: Pantoprazole 20 mg ER24 Tablet PO SCH (09:04)
[2016-06-04] MEDS ORDERED: 0.9% Sodium Chloride 2,000 ML ONE (10:16)
[2016-06-04] MEDS ORDERED: Heparin 1,000 Units/500 mL NS Premix IV ONE (10:16)
[2016-06-04] MEDS ORDERED: Nitroglycerin 50,000 mcg/250 mL D5W Premix IV ONE (10:16)
[2016-06-04] MEDS ORDERED: MethylprednisoLONE Sodium Succinate 40 mg/mL Inj ONE (10:28)
[2016-06-04] MEDS ORDERED: fentaNYL-PF 50 mCg/mL 2 mL Inj ONE (10:38)
[2016-06-04] MEDS ORDERED: hydrALAZINE 20 mg/mL Inj ONE (10:59)
[2016-06-04] MEDS ORDERED: MethylprednisoLONE Sodium Succinate 40 mg/mL Inj IVPUSH ONE (11:05)
[2016-06-04] MEDS ORDERED: Sodium Chloride LOK Flush 10 mL Syringe IVFLUSH PRN (12:45)
[2016-06-04] MEDS ORDERED: Ondansetron 2 mg/mL 2 mL Inj IVPUSH PRN (12:45)
[2016-06-04] MEDS ORDERED: 0.9% Sodium Chloride 250 ML BOLUS IV PRN (12:45)
[2016-06-04] MEDS ORDERED: 0.9% Sodium Chloride 1,000 ML IV ONE (12:45)
--- NOTE | 2016-06-04 14:48 | DI95 ---
[address] [address] INTERVENTIONAL CARDIAC CATHETERIZATION PATIENT: MARY CEE : 1950 MR#: [id number] ADMIT: 06/02/2016 JOB ID: [id number] DATE OF PROCEDURE: 06/04/2016 PATIENT PROFILE: The patient is a 66-year-old lady who presented with acute coronary syndrome. PROCEDURE: 1. Retrograde left heart catheterization. 2. Selective coronary angiography. 3. Balloon angioplasty and stenting to the proximal right coronary artery. 4. Balloon angioplasty and stenting to the mid circumflex artery. 5. Balloon angioplasty and stenting to the mid left anterior descending. 6. Vascular closure device: Perclose. COMPLICATIONS: None. METHOD: Retrograde left heart catheterization was performed from the right groin under 1% lidocaine local anesthesia using a 6-Tajik sheath. Selective coronary angiogram was performed in multiple projections, including cranial and caudal angulations with hand injected contrast via JL4 and 3DRC catheters. Heparin 8,000 units were given. A 6-Tajik 3DRC guide was advanced to the right coronary ostium. A Runthrough wire was placed inside the right coronary artery. The right coronary artery lesion was pre-dilated with a 2.5 x 15 mm balloon. A Resolute Integrity 2.5 x 18 mm stent was placed inside the proximal right coronary artery lesion and deployed at 10 atmospheres for 15 seconds. A 3.0 x 15 mm balloon was used for post stent deployment dilation. It was inflated up to 14 atmospheres for 10 seconds. Final angiogram was obtained. The attention was then turned to the circumflex artery. A 6-Tajik CLS 3.5 guide was advanced to the left coronary ostium. A Runthrough wire was placed inside the circumflex artery. The mid circumflex artery lesion was pre-dilated with a 2.5 x 15 mm balloon. A Resolute Integrity 2.5 x 26 mm stent was placed inside the mid circumflex artery lesion and deployed at 9 atmospheres for 10 seconds. A 3.0 x 20 mm balloon was used for post stent deployment dilation. It was inflated up to 16 atmospheres for 15 seconds in the proximal portion of the stent. Final angiogram was obtained. The attention was then turned to the left anterior descending artery. The guide catheter was changed to a 6-Tajik JL 3.5 guide. A Runthrough wire was placed inside the left anterior descending artery. The mid LAD lesion was pre-dilated with a 2.5 x 20 mm balloon. A Xience 2.5 x 15 mm stent was placed inside the distal mid lesion and deployed at 9 atmospheres for 15 seconds. A Resolute Integrity 2.5 x 14 mm stent was placed proximal to the previous stent. It was deployed at 11 atmospheres for 15 seconds. Final angiogram was obtained. A 5-Tajik angulated pigtail catheter was advanced to the left ventricle and left ventricular pressure was obtained. Right femoral angiogram was performed. Following sheath removal, hemostasis was achieved by using a Perclose device. The patient tolerated the procedure well. She was transferred to [facility] in good condition. TOTAL CONTRAST USED: 150 cc. FLUORO TIME: 9 minutes. RESULTS: 1. Selective coronary angiogram: a. Left main coronary artery is normal. b. The left anterior descending artery has diffuse tubular, 30% to 40% stenosis in the proximal portion and a long, 70% stenosis in the mid portion. The first diagonal branch is tiny. The second diagonal branch is quite small and has 95% stenosis at its origin. This branch is too small for percutaneous coronary intervention. c. The circumflex artery has 85% stenosis in the mid portion. d. The dominant right coronary artery has ulcerated, 95% stenosis in the proximal portion. 2. Balloon angioplasty and stenting was performed to the tight culprit proximal right coronary artery lesion by deploying one drug-eluting stent (2.5 x 18 mm). A 3.0 mm balloon was used for post stent deployment dilation. The final angiographic result was excellent with JOVANY-3 flow distally. 3. Balloon angioplasty and stenting was performed to the severe mid circumflex artery lesion by deploying one drug-eluting stent (2.5 x 26 mm) to achieve an excellent angiographic result with JOVANY-3 flow distally. 4. Balloon angioplasty and stenting was performed to the severe mid left anterior descending artery stenosis by deploying two drug-eluting stents (2.5 x 14 and 2.5 x 15 mm) to achieve an excellent angiographic result with JOVANY-3 flow distally. 5. Aortic pressure is 127/62 mmHg. Left ventricular pressure is 125/13 mmHg. 6. Left ventricular end-diastolic pressure is 26 mmHg. CONCLUSION: 1. Severe three-vessel coronary artery disease. 2. This was successfully treated with three-vessel stenting. 3. LVEDP is 26 mmHg. MTDD
--- NOTE | 2016-06-04 15:09 | DRSVH ---
PROCEDURE: US DUPLEX DOPPLER UNILATERAL LEG ARTERIES, RIGHT INDICATIONS: r/o pseudoaneurysm TECHNIQUE: Color and pulse Doppler interrogation was performed of the right lower extremity arterial system, wit h image documentation. COMPARISON: None. FINDINGS: Limited sonography of the right groin demonstrates no abnormalities. No fluid collection or masses a re seen. Normal appearance of the right common femoral artery and vein as is demonstrated with spect ral and color-flow Doppler. IMPRESSION: No right groin pseudoaneurysm. Dictated by: Adithya Ngo [place] Interpreted: Sammy Bower MD on 06/04/2016 at 15:09 Transcribed by: PITA on 06/04/2016 at 15:09 Approved by: Sammy Bower M.D. on 06/04/2016 at 15:56
--- NOTE | 2016-06-04 16:25 | NUR ---
Pt transferred to [facility] room 2011. Rt groin site with slight bruising, no hematoma noted. Pt has light pressure dressing in situ and 2.5lb sandbag to site. Pt's VSS, IV infusing NS @ 100ml/hr. Report and pt handoff given to Bernabe GRULLON.
--- NOTE | 2016-06-04 19:12 | PCM.PNMED ---
Subjective Date of Service Jun 04, 2016 Subjective Patient resting in bed when I visit with her, she is back from cardiac cath. She did have some bleeding at the insertion site which has improved/resolved. She has been chest pain-free, no new shortness of breath or nausea or vomiting. Exam Vital Signs Vital Sign - Last Date Time Temp Pulse Resp B/P Pulse Ox O2 Delivery O2 Flow Rate FiO2 06/04/16 17:13 36.6 64 17 130/77 96 Room Air 06/04/16 15:30 2.00 Intake and Output 06/03/16 06/03/16 06/04/16 Cumulative From/Thru 15:00 23:00 07:00 06/02/16 13:26 - 06/04/16 06:42 Intake Total 1728 ml 1075 ml 3901 ml Output Total 1150 ml 2650 ml 5050 ml Balance 578 ml -1575 ml -1149 ml Intake Oral 660 ml 200 ml 1060 ml IV Total 1068 ml 875 ml 2841 ml Output Urine Total 1150 ml 2650 ml 5050 ml # Bowel Movements 0 Exam General: Alert, Oriented X3, NAD Head: Normocephalic, atraumatic Eyes: DAX, EOMI, no scleral Icterus Chest: clear to auscultation B/L, no wheezing rales or rhonchi Heart: Regular rate and rhythm. Normal S1, S2, no murmurs noted Abdomen: soft, non-tender. Bowel sounds are normoactive. No guarding or rebound. Extremities: no cyanosis, clubbing or edema. Groin compression bandage in place IVs and Medications Medications Reviewed: Medications were reviewed in detail Lab and Diagnostics Result Diagram: 06/04/16 0410 06/03/16 0220 X-Rays, CTs and MRIs X-RAY CHEST, TWO VIEWS IMPRESSION: No acute or active or metastatic disease is seen in the two-view chest. Dictated by: Grady Reyes M.D. on 06/02/2016 at 14:20 Approved by: Grady Reyes M.D. on 06/02/2016 at 14:20 12-lead ECG Sinus Rhythm LBBB Assessment & Plan Laney Estrada is a 66 year old female with a 2 day history of substernal chest pain, a strong family history of CAD, and positive Troponin without ECG changes. She will be admitted for NSTEMI management; cardiology was consulted #. NSTEMI, present on admission, acute. 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 She had stents placed in 3 vessels. -Continue nitroglycerin, morphine as needed, aspirin, Plavix, statin. Oxygen as needed #. Asthma, present on admission, chronic, stable -Stable, not contributing -Continue Home Albuterol as needed #. Stage III breast cancer in remission, present on admission, chronic, stable -No evidence of recurrent metastatic disease on CXR. Cleared for 5 years per patient #. Depression with anxiety, present on admission, chronic. Stable -Continue home Sertraline CODE STATUS: FULL code DVT prophylaxis: Currently on heparin drip Disposition: Pending hospital course, likely home at discharge. Independent with ADLs. Discharge likely tomorrow GI Prophylaxis: H2 vini VTE Prophylaxis: Other (IV Heparin) Resuscitation Status: CPR: Attempt Resuscitation Tenzin Gardner DO Jun 04, 2016 19:12
--- NOTE | 2016-06-04 19:38 | NUR ---
Angiogram/groin site Pt back from angiogram, right groin still weeping some, dressing changed with Tenzin RAYNE and 2.5 LB sand bag applied. CMS intact and bilateral pedal pulses present. Cardiac: Pt denies CP, Tele: SR 50s-70s, angiogram scheduled for 11:00. Resp: Pt denies SOB, SPO2 97% on RA. GI/: Pt denies n/v/d Neuro: A&Ox3, nelson
[2016-06-05 01:09] VITALS: BP 114/62; PULSE 65; RESP 16; O2SAT 96
[2016-06-05 03:47] LABS: Mean Corpuscular Hemoglobin 29.2 pg (27.0-35.0); Mean Corpuscular Volume 88.8 fL (81-100)
[2016-06-05 04:27] VITALS: PULSE 60
--- NOTE | 2016-06-05 05:45 | NUR ---
Pain Pt c/o 8/10 pain to head this HS; Tylenol given with slight relief upon reassessment. Pt able to rest throughout rest of shift, no further complaints. Groin site C/D/I, pt reports slight tenderness, bruising to area. VSS. Tele SR 80s.
[2016-06-05 05:52] VITALS: BP 125/72; PULSE 63; RESP 16; O2SAT 96
[2016-06-05 08:40] VITALS: BP 143/69; PULSE 57; O2SAT 98
[2016-06-05] MEDS: Pantoprazole 20 mg ER24 Tablet PO SCH (08:43)
[2016-06-05] MEDS: Multivit-Miner-Folic Acid-Iron Tablet PO SCH (08:43)
[2016-06-05] MEDS: MeTOProlol XL 25 mg ER24 Tablet PO SCH (08:43)
[2016-06-05] MEDS: RESTASIS BOTH_EYES SCH (08:44)
[2016-06-05] MEDS: Sodium Chloride LOK Flush 10 mL Syringe IVFLUSH SCH (08:44)
--- NOTE | 2016-06-05 09:04 | PCM.DIMED ---
Discharge Instructions Date of Service Jun 05, 2016 Dates of Hospitalization Jun 02, 2016 at 20:06 Discharge Diagnosis Discharge Diagnosis #. NSTEMI, with multiple stents placed. #. Asthma #. Stage III breast cancer in remission #. Depression Diet Low fat, Low Sodium, Heart Healthy Activity Limited until seen by PCP Call your provider Shortness of breath, Chest pain Patient Instructions Dr Duenas June 27 as scheduled. Cardiac Rehab: 2 weeks Nazario Ridley MD Jun 05, 2016 09:04
[2016-06-05] MEDS ORDERED: ASPI81TA3 PO (09:08)
[2016-06-05] MEDS ORDERED: ATOR20TA65 PO (09:08)
[2016-06-05] MEDS ORDERED: METO25TA99 PO (09:08)
[2016-06-05] MEDS ORDERED: CLOP75TA28 PO (09:08)
[2016-06-05] MEDS ORDERED: NITR0.4T SL (09:08)
--- NOTE | 2016-06-05 11:09 | NUR ---
Discharge The pt left the unit at 1100 with all her belongings and her discharge packet of information. She left via foot to a private vehicle where her will be transporting her home. The pt verbalized understanding off all discharge teaching; including script info, follow up appointment info and post heart cath care. The pt left the unit A&Ox3 with vitals WNL and stable.
--- NOTE | 2016-06-05 12:06 | NUR ---
Social Work Note: Discharge Data& Assessment: Per pt is medically improved and ready to discharge home via POV. Laney Estrada is a 66 year old female admitted on 06/02/2016 for NSTEMI. Per pt is medically improved and ready to discharge. Pt is independent in her room. SW met with pt and pt at bedside to confirm discharge plan and assess for any unmet needs. Pt and pt deny any other needs. Pt providing transportation home. No other discharge needs identified. Plan: Per pt is medically improved and ready to discharge home via POV. Pt and pt deny any other needs. No other discharge needs identified. ERNESTO Conklin
--- NOTE | 2016-06-06 13:06 | PCM.DC.MED ---
Discharge Summary Date of Service Jun 05, 2016 Dates of Hospitalization Date of Hospital Admission Jun 02, 2016 at 20:06 Date of Discharge: Jun 05, 2016 Providers: Admitting Physician: Kinza Santana DO Primary Care Physician: Nima Molina MD Attending Physician: Kinza Santana DO Diagnosis at Time of Discharge Diagnosis at Time of Discharge #. NSTEMI, with multiple stents placed. #. Asthma #. Stage III breast cancer in remission #. Depression Consultations Cardiology, Dr. Duenas Procedures XRay, CTs & MRIs X-RAY CHEST, TWO VIEWS IMPRESSION: No acute or active or metastatic disease is seen in the two-view chest. Dictated by: Grady Reyes M.D. on 06/02/2016 at 14:20 Approved by: Grady Reyes M.D. on 06/02/2016 at 14:20 ECG 12 Lead Sinus Rhythm LBBB Cardiac Echo Impression 1) Normal left ventricular thickness, size, and systolic function (EF 55- 60)%. 2) Poor endothelial visualization limit wall motion assess but inferolateral wall appears to have subtle hypokinesis. 3) Normal right ventricular size and function. 4) No significant valvular disease. 5) Compared to the Echo done 10/25/2014, subtle hypokinesis of the inferolateral appears to be present on today's study. Invasive Procedures PROCEDURE: 1. Retrograde left heart catheterization. 2. Selective coronary angiography. 3. Balloon angioplasty and stenting to the proximal right coronary artery. 4. Balloon angioplasty and stenting to the mid circumflex artery. 5. Balloon angioplasty and stenting to the mid left anterior descending. 6. Vascular closure device: Perclose. Brief History 66 yo Gnosticist woman h/o stage III breast cancer with no recurrence as of 2016, chronic LBBB, and HLD admitted with chest pain. At baseline, patient is fairly healthy and can climb 2 flights of stairs without any difficulty and symptoms. 3 days ago, patient started having exertional chest pain radiating to her jaw that persisted even at rest. She took her inhaler and it did not help. Rest improves the pain. The chest pain persisted until she came to our emergency room yesterday and got nitroglycerin that resolved the pain. She had no recurrence of chest pain in the emergency room that also resolved with nitroglycerin. No recurrence of chest pain since arrival to the hospital floor. Associated with the chest pain is shortness of breath. Denies palpitations, heart racing sensations, nausea, vomiting, lightheadedness, or syncope. Hospital Course Laney Estrada is a 66 year old female with a 2 day history of substernal chest pain, a strong family history of CAD, and positive Troponin without ECG changes. She will be admitted for NSTEMI management; cardiology was consulted #. NSTEMI, present on admission, acute. 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 She had stents placed in 3 vessels. -Continue nitroglycerin, morphine as needed, aspirin, Plavix, statin. Oxygen as needed She was treated medically and then taken to the coronary catheterization laboratory she had 3 stents placed as noted above in her circumflex, right coronary and left anterior descending coronary artery. She had no postprocedure complications. #. Asthma, present on admission, chronic, stable -Stable, not contributing -Continue Home Albuterol as needed This remained stable during hospitalization #. Stage III breast cancer in remission, present on admission, chronic, stable -No evidence of recurrent metastatic disease on CXR. Cleared for 5 years per patient #. Depression with anxiety, present on admission, chronic. Stable -Continue home Sertraline CODE STATUS: FULL code She was stable for discharge home with her on June 05. Exam Vital Signs (Last) Date Time Temp Pulse Resp B/P Pulse Ox O2 Delivery O2 Flow Rate FiO2 06/05/16 08:40 36.9 57 143/69 98 Room Air 06/05/16 05:52 16 06/04/16 15:30 2.00 Exam Patient was seen and examined on the day of discharge Test 06/02/16 15:38 06/02/16 18:36 06/03/16 02:20 06/03/16 09:02 Hemoglobin A1c 5.6% (4.8-5.6) Hold Hutson Top Tube Received (Received) Urine Color Straw (YELLOW) Urine Appearance Clear (CLEAR,HAZY) Urine pH 6.5 (5.0-8.0) Urine Specific [place] 1.010 (1.003-1.035) Urine Protein Negativemg/dL (NEG,TRACE) Urine Glucose (UA) Negativemg/dL (NEGATIVE) Urine Ketones Negativemg/dL (NEGATIVE) Urine Occult Blood Small (NEGATIVE) Urine Nitrite Negative (NEGATIVE) Urine Bilirubin Negative (NEGATIVE) Urine Urobilinogen Normalmg/dL (NORMAL) Urine Leukocyte Esterase Trace (NEGATIVE) Urine RBC 0-2/hpf (0-2) Urine WBC 0-5/hpf (0-5) Urine Epithelial Cells Occasional/hpf (NONE-MOD) Urine Crystals None seen (NONE SEEN) Urine Bacteria None/hpf (NONE-FEW) Urine Hyaline Casts None/lpf (NONE) Urine Granular Casts None seen (NONE SEEN) Urine Waxy Casts None seen (NONE SEEN) Urine Red Blood Cell Casts None seen (NONE SEEN) Urine White Blood Cell Casts None seen (NONE SEEN) Urine Mucus None seen (None Seen) Urine Trichomonas None seen (NONE SEEN) Urine Yeast None (NONE SEEN) Urine Culture Reflexed Indicated Hold Urine Received (Received) Neutrophils (%) (Auto) 65.5% (40-74) Lymphocytes (%) (Auto) 24.2% (14-46) Monocytes (%) (Auto) 6.9% (4-12) Eosinophils (%) (Auto) 2.6% (0-5) Basophils (%) (Auto) 0.7% (0-3) Phosphorus Level 4.2mg/dL (2.5-4.9) Magnesium Level 2.2mg/dL (1.6-2.6) Total Bilirubin 0.4mg/dL (0.0-1.2) Aspartate Amino Transf (AST/SGOT) 14U/L (0-50) Alanine Aminotransferase (ALT/SGPT) 10U/L (0-32) Alkaline Phosphatase 74U/L (25-165) Total Creatine Kinase 75U/L (21-215) Creatine Kinase MB 2.5ng/mL (0.0-5.3) Creatine Kinase MB % % (0.0-5.0) Total Protein 6.5g/dL (6.4-8.4) Albumin 3.9g/dL (3.4-5.0) Triglycerides Level 203mg/dL (0-149) Cholesterol Level 160mg/dL (100-199) LDL Cholesterol, Calculated 70.400mg/dL (0-99) VLDL Cholesterol 40.600mg/dL HDL Cholesterol 49mg/dL (>39) Cholesterol/HDL Ratio 3.27 (0.0-4.4) Troponin T 0.026ug/L (0.0-0.011) Test 06/04/16 04:10 06/05/16 03:30 Activated Partial Thromboplast Time 67.5sec (22.8-33.0) White Blood Count 12.1th/mm3 (3.8-10.1) Red Blood Count 4.56mil/mm3 (3.90-5.20) Hemoglobin 13.3g/dL (12.0-15.6) Hematocrit 40.5% (35.0-46.0) Mean Corpuscular Volume 88.8fL (81-100) Mean Corpuscular Hemoglobin 29.2pg (27.0-35.0) Mean Corpuscular Hemoglobin Concent 32.8% (32.0-37.0) Red Cell Distribution Width 15.0% (12.3-15.4) Platelet Count 186bil/L (150-400) Sodium Level 139mEq/L (134-144) Potassium Level 3.7mEq/L (3.5-5.2) Chloride Level 108mEq/L (97-108) Carbon Dioxide Level 18mmol/L (18-29) Blood Urea Nitrogen 15mg/dL (8-27) Creatinine 0.78mg/dL (0.57-1.00) Estimat Glomerular Filtration Rate 106mL/min (>59) Glucose Level 127mg/dL (60-99) Calcium Level 9.1mg/dL (8.5-10.1) Discharge Medications Discharge Medications ([vitamin b12]) SQ monthly (Reported) Aspirin Chew (Aspirin Chew) 81 Mg Chew 81 MG PO DAILY Prescribed by: NAZARIO LAYTON MD Atorvastatin Calcium (Atorvastatin Calcium) 20 Mg Tablet 40 MG PO DAILY Prescribed by: NAZARIO LAYTON MD Cholecalciferol (Vitamin D3) (Vitamin D3) 2,000 Unit Tablet 2,000 UNIT PO DAILY (Reported) Clobetasol Propionate/Emoll (Clobetasol Emollient 0.05% Crm) 15 Gm Cream..g. 1 APPL TOP PRN (Reported) Clopidogrel (Clopidogrel) 75 Mg Tablet 75 MG PO DAILY Prescribed by: NAZARIO LAYTON MD Cyclosporine (Restasis) 1 Each Droperette 1 EACH OP BID (Reported) Fexofenadine (Margarita Allergy) 60 Mg Tablet 60 MG PO PRN (Reported) Metoprolol Succinate ER (Metoprolol Succinate ER) 25 Mg Tab.er.24h 12.5 MG PO DAILY Prescribed by: NAZARIO LAYTON MD Omeprazole (Prilosec) 20 Mg Capcr 20 MG PO PRN (Reported) Sertraline HCl (Sertraline) 100 Mg Tablet 100 MG PO DAILY (Reported) Topiramate (Topiramate) 100 Mg Tablet 100 MG PO DAILY (Reported) Ubidecarenone (Coq-10) 100 Mg Capsule 300 MG PO DAILY (Reported) Vit B Comp/C/FA/Iron/Vit E (Vitamin B Complex Tablet) 1 Each Tablet 1 EACH PO DAILY (Reported) As needed Albuterol HFA (Albuterol HFA) 8.5 Gm Hfa.aer.ad 2 PUFF INHALATION Q4H PRN PRN For Shortness of Breath (Reported) Nitroglycerin SL (Nitrostat) 0.4 Mg Tab.subl 0.4 MG SL Q5MIN PRN PRN For Chest Pain IF SBP > 90 take one every 5 min for chest pain, call 911 if not relieved within 15 min Prescribed by: NAZARIO LAYTON MD Miscellaneous Medications Cyclosporine (Restasis) 1 Each Droperette 1 EACH OP (Reported) Cyclosporine (Restasis Multidose) 0.05 % Drops 5.5 ML OP (Reported) Followup Plan Disposition: Home, with Discharge Diet: Low fat, Low Sodium, Heart Healthy Discharge Activity: Limited until seen by PCP Patient Instructions Dr Duenas June 27 as scheduled. Cardiac Rehab: 2 weeks Time spent 45 minutes Nazario Layton MD Jun 06, 2016 13:06
[2016-07-10] MEDS ORDERED: CYA1000I IM (12:02)
== END 2016-06-05 10:56 | disposition home or self-care (01) | DRG 246 ==
LOC: SED 13:24 → PCC 20:06 → OBSVTOIN 20:06
PROVIDERS: ADMIT Internal Medicine; ATTEND Internal Medicine
PROC: 027237Z Dilation of Coronary Artery, Three Arteries with Four or More Drug-eluting Intraluminal Devices, Percutaneous Approach (ICD-10-PCS; principal; 2016-06-04)
PROC: 4A023N7 Measurement of Cardiac Sampling and Pressure, Left Heart, Percutaneous Approach (ICD-10-PCS; 2016-06-04)
PROC: B2111ZZ Fluoroscopy of Multiple Coronary Arteries using Low Osmolar Contrast (ICD-10-PCS; 2016-06-04)
DX: I21.4 Non-ST elevation (NSTEMI) myocardial infarction (principal); I44.7 Left bundle-branch block, unspecified; E78.5 Hyperlipidemia, unspecified; F32.9 Major depressive disorder, single episode, unspecified; F41.9 Anxiety disorder, unspecified; J45.909 Unspecified asthma, uncomplicated; I25.10 Atherosclerotic heart disease of native coronary artery without angina pectoris; Z85.3 Personal history of malignant neoplasm of breast

== ENCOUNTER 2016-07-11 01:12 | Day surgery (SDC) | payer MEDICARE ==
[2016-07-11] VITALS (12 sets, daily range): BP systolic 108–120; BP diastolic 58–72; PULSE 60–72; RESP 13–18; O2SAT 93–96
[~2016-07-11] VITALS: Ht 163.8 cm; Wt 76.3 kg
[~2016-07-11 01:12] MED LIST changes: +ASPI81TA3 PO; +CLOP75TA28 PO; +CYA1000I IM; +METO25TA99 PO; +NITR0.4T SL; -vitamin b12 SQ
[2016-07-11 07:43] LABS: BASOPHILS % (AUTO) 0.4 % (0-3); EOSINOPHILS % (AUTO) 2.2 % (0-5); Mean Corpuscular Hemoglobin 29.3 pg (27.0-35.0); Mean Corpuscular Volume 90.4 fL (81-100); NEUTROPHILS % (AUTO) 79.1 % (40-74); Platelet Count 203 bil/L (150-400)
[2016-07-11] MEDS ORDERED: TOPI-59 PO (08:03)
[2016-07-11] MEDS ORDERED: Heparin 1,000 Units/500 mL NS Premix IV ONE (08:03)
[2016-07-11] MEDS ORDERED: NITR0.4T6 SL (08:03)
[2016-07-11] MEDS ORDERED: METO25TA99 PO (08:03)
[2016-07-11] MEDS ORDERED: ATOR20TA PO (08:03)
[2016-07-11] MEDS ORDERED: CLOP75TA28 PO (08:03)
[2016-07-11] MEDS ORDERED: ALBU8.5H2 INHALATION (08:03)
[2016-07-11] MEDS ORDERED: OMEP20CA11 PO (08:03)
[2016-07-11] MEDS ORDERED: Heparin 10,000 Unit/1,000 mL NS Premix IV ONE (08:03)
[2016-07-11] MEDS ORDERED: ASPI-973 PO (08:05)
[2016-07-11 08:08] LABS: INR 0.9 ratio
[2016-07-11] MEDS ORDERED: Hydrocortisone 50 mg/mL 2 mL Inj ONE (08:19)
[2016-07-11] MEDS ORDERED: fentaNYL-PF 50 mCg/mL 2 mL Inj ONE (08:48)
[2016-07-11] MEDS ORDERED: Nitroglycerin 50,000 mcg/250 mL D5W Premix IV ONE (09:07)
[2016-07-11] MEDS ORDERED: Heparin 1,000 Unit/mL 10 mL Inj ONE (09:07)
[2016-07-11] MEDS ORDERED: Adenosine Inj 40 ML IV ONE (09:09)
[2016-07-11] MEDS ORDERED: 0.9% Sodium Chloride 100 ML ONE (09:10)
--- NOTE | 2016-07-11 10:10 | CS94 ---
[place] [address] DIAGNOSTIC CARDIAC CATHETERIZATION PATIENT: MARY CEE : 1950 MR#: [id number] ADMIT: 07/11/2016 JOB ID: [id number] SERVICE DATE: 07/11/2016 PATIENT PROFILE: The patient is a 66-year-old lady, who underwent three-vessel coronary stent placement on June 04, 2016. After the interventional procedure, she has three episodes of exertional chest discomfort, relieved by rest and nitroglycerin. PROCEDURE: 1. Retrograde left heart catheterization. 2. Selective coronary angiography. 3. Fractional flow reserve to the proximal left anterior descending. VASCULAR CLOSURE DEVICE: Perclose. COMPLICATIONS: None. METHOD: Retrograde left heart catheterization was performed from the right groin under 1% lidocaine local anesthesia using a 6-Gabonese sheath. This was performed under ultrasound guidance. Selective coronary angiogram was performed in multiple projections, including cranial and caudal angulations with hand injected contrast via a CLS 3.5 and 3DRC catheters. Heparin 3,000 units were given. A flow wire was directed into the left anterior descending. Adenosine was given infusion IV. FFR was measured. The procedure was terminated. Right femoral angiogram was performed. Following sheath removal, hemostasis was achieved by using a StarClose device. The patient tolerated the procedure well. She was transferred to [facility] in good condition. TOTAL CONTRAST USED: 35 cc. FLUOROSCOPY TIME: 2 minutes. RESULTS: 1. Selective coronary angiogram: a. Left main coronary artery is short and normal. b. The left anterior descending artery has 40-50% stenosis in the proximal portion. The previous stent site in the mid portion remains patent. The diagonal branches are quite small. The third diagonal branch has severe 80% stenosis at its origin. This lesion is not amenable to percutaneous coronary intervention due to the small vessel size (smaller than 0.5 mm in diameter). c. The circumflex artery appears normal. The previous stent site in the mid portion remains patent. d. The dominant right coronary artery has minor irregularity. The previous stent site in the proximal portion remains patent. 2. FFR of the proximal left anterior descending artery is 0.85, which indicates nonhemodynamic significant stenosis. 3. Aortic pressure is 151/72 mmHg. CONCLUSION: 1. Moderate disease of the proximal left anterior descending with FFR of 0.85. 2. The previous stents remain patent. 3. 80% stenosis at the origin of a tiny 3rd diagonal branch. PLAN: Her medications will remain the same with the exception of metoprolol succinate will be increased from 12.5 mg to 25 mg once daily. MTDD
--- NOTE | 2016-07-11 14:23 | NUR ---
Discharge Pt dicharged to home post heart cath, recovery stable, groin site soft non tender, no signs of bleeding. Pt stated verbal understanding of discharge instructions, pt and left with personal belongings at approximately 1415.
== END 2016-07-11 23:59 | disposition home or self-care (01) ==
LOC: SOUO 01:12
PROVIDERS: ATTEND Internal Medicine Interventional Cardiology
DX: I25.118 Atherosclerotic heart disease of native coronary artery with other forms of angina pectoris (principal); Z95.5 Presence of coronary angioplasty implant and graft; I25.2 Old myocardial infarction; Z85.3 Personal history of malignant neoplasm of breast; I44.7 Left bundle-branch block, unspecified; E78.5 Hyperlipidemia, unspecified; Z79.82 Long term (current) use of aspirin; Z79.02 Long term (current) use of antithrombotics/antiplatelets
CPT/HCPCS: 36415; 80048; 85025; 85610; 93005; 93454; 93571; 99152; 99153; C1760; C1769; C1887; J0153; J1200; J1644; J1720; J2250; J3010; Q9967